=== PATIENT | male | born 1970 | race Caucasian/White ===

== ENCOUNTER → 2019-05-08 | Outpatient (CLI) | payer OTHER ==
[~2019-05-08] MED LIST: FISH OIL 1,001000 M3 PO; UNICOMPLEX M TA1 TA1 PO; VITAMIN B-121000 MC2 PO; VITAMIN C1000 MG PO
[2019-05-08 11:09] LABS: APTT 30.8 Seconds (24.5-32.8); PROTIME 10.4 Seconds (9.3-11.4)
[2019-05-08 12:35] LABS: CSF CLARITY CLEAR; CSF COLOR COLORLESS; CSF RBC 10 /mm3; CSF WBC 0 /mm3 (0-10); VOLUME 16 ml
[2019-05-08 12:36] LABS: CSF GLUCOSE 58 mg/dL (40-70); CSF PROTEIN 49 mg/dL (15-45)
--- NOTE | 2019-05-08 14:12 | NUR ---
LATE ENTRY NOTE: PT RECOVERED FOR 70 MINUTES. DC'D AT 1310 PER WHEELCHAIR BY RN. BANDAID INTACT. NO SWELLING OR BLEEDING. NO HEADACHE OR OTHER SYMPTOMS. VSS. TEMP 97.6. P 71, BP 106/64. VERBALIZES UNDERSTANDING OF DC INSTRUCTIONS
[2019-05-11 13:08] LABS: CSF VDRL Non Reactive (Non Rea:<1:1)
== END ==
LOC: RAD 10:00
PROVIDERS: Radiology Diagnostic Radiology; Specialist
DX: H20.9 Unspecified iridocyclitis (principal); H46.9 Unspecified optic neuritis

== ENCOUNTER → 2019-05-14 | Outpatient (CLI) | payer OTHER ==
[2019-05-14 15:44] VITALS: BP 111/69
--- NOTE | 2019-05-14 17:37 | NUR ---
IN FOR MIDLINE PLACEMENT AND 1ST DOSE OF PCN G FOR UVEITIS. IV TEAM PLACED MIDLINE IN RAI. RECEIVED A GOOD BLOOD RETURN AND FLUSHED EASILY. TOLERATED INFUSION WITHOUT INCIDENT. ADMISSION HISTORY AND ASSESSMENT COMPLETED. PATIENT HAS NO ALLERGIES. NURSE CAME AND INSTRUCTED PATIENT ON HOME CARE. NO REACTION NOTED. DISMISSED IN STABLE CONDITION.
--- NOTE | 2019-05-15 00:40 | NUR ---
RISK, BENEFITS, AND ALTERNATIVE TREATMENT DISCUSSED WITH THE PATIENT RELATED TO MIDLINE PROCEDURE. TEACHING GIVEN RELATED TO POSSIBLE COMPLICATIONS SUCH BLEEDING, INFECTION, CLOT, OR VESSEL PERFORATION. INSTRUCTION GIVEN RELATED TO CLABSI PREVENTION WITH LITERATURE PROVIDED.PATIENT VOICES UNDERSTANDING TO THE ABOVE AND GIVES CONSENT. WRITTEN CONSENT OBTAINED. MIDLINE PLACED TO RUE BASILIC VEIN. ONE STICK AND NO COMPLICATIONS. PATIENT TOLERATED WELL. MIDLINE LENGTH =13CM. EXTERNAL =0CM. RN NOTIFIED OKAY TO USE.
== END ==
LOC: OPONC 14:10
DX: H20.9 Unspecified iridocyclitis (principal)
CPT/HCPCS: 27000; 95000